=== PATIENT | male | born 1995 | race Caucasian/White ===

== ENCOUNTER 2017-11-21 07:10 | Emergency (ER) | payer OTHER | END 2017-11-21 08:30 | disposition home or self-care (01) | LOC: SCSER 07:10 | DX: R09.81 Nasal congestion (principal); F84.0 Autistic disorder | CPT/HCPCS: 99283 ==

== ENCOUNTER 2019-09-23 13:38 | Emergency (ER) | payer OTHER ==
[2019-09-23] MEDS ORDERED: Bacitracin 1 PK ONE (14:05)
== END 2019-09-23 14:10 | disposition home or self-care (01) ==
LOC: SCSER 13:38
DX: S70.212A Abrasion, left hip, initial encounter (principal); F84.0 Autistic disorder; Z79.899 Other long term (current) drug therapy; X58.XXXA Exposure to other specified factors, initial encounter
CPT/HCPCS: 99283

== ENCOUNTER 2021-03-26 11:38 | Outpatient (CLI) | payer OTHER | END 2021-03-26 11:39 | disposition home or self-care (01) | LOC: BICRAD 11:38 | PROVIDERS: ATTEND Physician Assistant Medical | DX: K21.9 Gastro-esophageal reflux disease without esophagitis (principal); R19.7 Diarrhea, unspecified | CPT/HCPCS: 36415; 74018; 83516; 85652; 86140 ==

== ENCOUNTER 2022-03-26 08:20 | Outpatient (CLI) | payer OTHER | END 2022-03-26 08:21 | disposition home or self-care (01) | LOC: BICRAD 08:20 | PROVIDERS: ATTEND Family Medicine | DX: M25.521 Pain in right elbow (principal) ==